=== PATIENT | female | born 1980 | race Caucasian/White ===

== ENCOUNTER 2018-08-31 05:10 | Inpatient (IN) ==
[2018-08-23 15:50] LABS: URINE SOURCE CLEAN CATCH
[2018-08-23 16:09] LABS: BILIRUBIN URINE NEGATIVE (NEGATIVE); BLOOD URINE SMALL (NEGATIVE); CLARITY CLOUDY (CLEAR); COLOR YELLOW; GLUCOSE URINE NEGATIVE (NEGATIVE); KETONE URINE TRACE mg/dL (NEGATIVE); LEUKOCYTES URINE NEGATIVE (NEGATIVE); NITRITE URINE NEGATIVE (NEGATIVE); PROTEIN URINE TRACE mg/dL (NEGATIVE); UROBILINOGEN URINE 0.2 EU/dL (0.2-1.0)
[2018-08-23 16:11] LABS: URINE BACTERIA 2+ /HFP; URINE EPITHELIAL CELLS <10 /HPF (<10); URINE RBC <10 /HPF (<10); URINE WBC <10 /HPF (<10)
[2018-08-23 16:12] LABS: URINE CAST NONE SEEN /LPF; URINE CRYSTAL NONE SEEN /HPF; URINE SMALL ROUND CELLS TRANSITIONAL PRESENT; URINE YEAST NONE SEEN /HPF
[2018-08-31] MEDS ORDERED: PEPCID ONE (06:17)
[2018-08-31] MEDS ORDERED: REGLAN ONE (06:17)
[2018-08-31] MEDS ORDERED: TRANSDERM-SCOP ONE (06:17)
[2018-08-31] MEDS ORDERED: LR 1,000 ML ONE ×2 (06:18→14:11)
[2018-08-31] MEDS ORDERED: LOVENOX ONE (06:18)
[2018-08-31] MEDS ORDERED: VALIUM ONE (06:18)
[2018-08-31] MEDS ORDERED: LUBRIFRESH PM OPH OINTMENT ONE (06:38)
[2018-08-31] MEDS ORDERED: VERSED ONE (06:40)
[2018-08-31] MEDS ORDERED: QUELICIN (DOSE) ONE (06:42)
[2018-08-31] MEDS ORDERED: XYLOCAINE-MPF 2% ONE (06:42)
[2018-08-31] MEDS ORDERED: DIPRIVAN 1% ONE (06:42)
[2018-08-31] MEDS ORDERED: EXPAREL 1.3% ONE (06:51)
[2018-08-31] MEDS ORDERED: BACITRACIN ONE (06:51)
[2018-08-31] MEDS ORDERED: NS 250 ML ONE (06:51)
[2018-08-31] MEDS ORDERED: KEFZOL 2 GM/D5W 2 GM/50 ML IVPB ONE (07:19)
[2018-08-31] MEDS ORDERED: FENTANYL ONE (07:31)
[2018-08-31 07:47] LABS: URINE SOURCE CATH
[2018-08-31 07:56] LABS: BILIRUBIN URINE NEGATIVE (NEGATIVE); BLOOD URINE NEGATIVE (NEGATIVE); COLOR YELLOW; GLUCOSE URINE NEGATIVE (NEGATIVE); KETONE URINE NEGATIVE (NEGATIVE); LEUKOCYTES URINE NEGATIVE (NEGATIVE); NITRITE URINE NEGATIVE (NEGATIVE); PROTEIN URINE NEGATIVE (NEGATIVE); SP GRAVITY URINE 1.007; TURBIDITY URINE CLEAR (CLEAR); UROBILINOGEN URINE NORMAL (NORMAL)
[2018-08-31 07:58] LABS: UR EPITHELIAL CELLS <10 /HPF (<10); URINE BACTERIA NEGATIVE /HPF; URINE RBC <10 /HPF (<10); URINE WBC <10 /HPF (<10)
[2018-08-31] MEDS ORDERED: ZOFRAN ONE (09:03)
[2018-08-31] MEDS ORDERED: ZEMURON ONE ×3 (09:03→11:39)
[2018-08-31] MEDS ORDERED: DECADRON ONE (09:03)
[2018-08-31] MEDS ORDERED: KEFZOL 1 GM/D5W 1 GM/50 ML IVPB ONE (11:06)
[2018-08-31] MEDS: PHENERGAN ONE ×2 (14:37→14:42)
[2018-08-31] MEDS ORDERED: LR 500 ML ONE (14:49)
[2018-08-31] MEDS ORDERED: DILAUDID PCA VIAL IV PRN (15:06)
[2018-08-31] MEDS ORDERED: NARCAN IV PRN (15:06)
--- NOTE | 2018-08-31 15:39 | OPERATIVE NOTE ---
PROCEDURE DATE: 08/31/2018 PREOPERATIVE DIAGNOSIS: Right breast cancer. POSTOPERATIVE DIAGNOSIS: Right breast cancer. PROCEDURE PERFORMED: 1. Right modified radical mastectomy. 2. Left total mastectomy. ESTIMATED BLOOD LOSS: 50 mL. SPECIMENS: 1. Left breast stitch ly medial. 2. Right breast with axillary contents. Short stitch ly medial, long stitch ly axillary contents. 3. Additional axillary contents. ANESTHESIA: General. INDICATIONS: This is a 38-year-old female status post neoadjuvant therapy for a local regionally advanced right breast carcinoma. She had a good clinical response and plans to undergo right- sided modified radical mastectomy and left total prophylactic with bilateral tissue nut blanker operator reconstruction by Dr. Reese. OPERATIVE FINDINGS: There was no evidence of gross residual disease noted. OPERATIVE NOTE: Risks, benefits, alternatives discussed with patient. She consented to the procedure. Was seen preoperatively and surgical site was confirmed and marked both by myself and Dr. Reese. She was taken to the operating room, placed supine in position with both arms out and her bilateral breasts were prepped with Betadine and draped in usual fashion. After time-out, we started with her left breast and made an elliptical incision that was previously made by Dr. Reese. We created a superior flap up to the level of the clavipectoral fascia laterally, out to the latissimus muscle medially to the sternum and inferiorly down to the inframammary fold in the superior aspect of the rectus. At this point, we removed the breast in its entirety, including the muscle fascia, protecting the muscle, passing it off. Hemostasis was noted. There were well perfused both superior and inferior flaps. We placed moist gauze within this and turned our attention to the right breast. A similar elliptical incision was made. We created a superior flap extending to the clavipectoral fascia inferiorly, to the inframammary fold in the rectus muscle laterally out to the latissimus. However, on this side given that she had biopsy confirmed adenopathy prior to her therapy, we identified the latissimus muscle and continued our dissection cephalad. There were some fibrotic nodes in the area of the axillary vein that made its identification somewhat difficult. We did identify the thoracodorsal bundle and protected this. Medially we also identified the long thoracic nerve and protected this. The intercostal brachialis was identified and divided as it coursed right through our specimen and some prominent nodes here, but we were able to identify the axillary vein. There were some feeding veins off of this that we divided with clips and some lymphatics in this area that we divided. We protected the thoracodorsal bundle throughout all this. At this point, we removed the entirety of the lymph node packet and passed it off. There did appear to be a small packet of nodes again more posterior and lateral to the thoracodorsal bundle that we excised. The nodes superior and medial to the axillary vein were not pathologically enlarged and as such we did not pursue a dissection in this area. Hemostasis was noted. The thoracodorsal and long thoracic nerve were intact. We irrigated the cavity and confirmed hemostasis. Counts were correct for my portion of the operation. We did turn our case over to Dr. Reese at which point he will continue with a tissue nut blanker operator reconstruction. For details please see his operative note. cc: Frank Jones MD [facility]
[2018-08-31] MEDS: LR 1,000 ML IV SCH (18:39)
[2018-08-31] MEDS: PERIDEX MT SCH (21:14)
[2018-08-31] MEDS: KEFZOL 1 GM/D5W 1 GM/50 ML IVPB IV SCH (21:14)
--- NOTE | 2018-08-31 22:29 | OPERATIVE NOTE ---
PROCEDURE DATE: 08/31/2018 PROCEDURE: Bilateral breast reconstruction, with bilateral submuscular tissue blasting contract miner. SURGEON: Dr. Reese. CODES: The ICD-10 diagnosis code for this case is Z85.3, personal history of breast cancer, and N64.89, acquired deformity of the breast. The CPT codes are 40806, insertion of tissue blasting contract miner, and 54633-39, insertion of tissue blasting contract miner on the other side. INDICATION FOR PROCEDURE: This patient is a 38-year-old white female who has a right breast cancer. She is being taken care of by Dr. Deacon Jones. She has finished adjuvant chemotherapy, and she is now ready for a modified radical mastectomy on the right side, and a prophylactic total mastectomy on the left side. She desires reconstruction. She was seen in the office for informed consent for the placement of bilateral tissue expanders on 08/23/2018. At that point, she understood that she would have bilateral air blasting contract miner tissue expanders placed in a submuscular position after Dr. Jones finished her mastectomies. She understands that this is the first stage of a planned 2-stage procedure, that the devices we are putting in are the stretching devices, they are not permanent. She understands there will be a period of time where she does not have optimal breast shape. She understands that exact bra cup size change cannot be guaranteed. She knows the risks include infection, blood loss, blood clots in legs, heart problems, lung problems, allergic reactions, or blood and serum collections in the operative sites that might require drainage. She understands that the tissue expanders have a lot of metal in them, and while she has them in, she cannot have an MRI scan. She knows that exact size and shape cannot be guaranteed. She knows her skin incisions will be across her chest on both sides, and that is where the scars will be. DESCRIPTION OF PROCEDURE: The patient was brought to the operating after she was marked in outpatient surgery in sitting position for the mastectomies. She went to the operating room, was prepped and draped. The ly were reviewed with Dr. Jones, and then he proceeded to do the mastectomies on both sides. When he was completed, the reconstruction began. Submuscular pockets were created under pectoralis major muscle, the pectoralis minor muscle, and the serratus anterior muscle, for 100% muscular closure. This was done on both sides, and dissected equal submuscular pockets. She measured well for the medium-size air expanders, which are the [id number] devices. Both pockets were irrigated with bacitracin solution. Exparel was placed in the subcutaneous tissue, and around the muscle perimeter, for postoperative pain management. A drain was placed deep in the pocket. Hemostasis was achieved with electrocautery. A silk stitch was placed at the 6 o'clock position to put into the blasting contract miner stitch tab. This was done on both sides. The expanders were opened. The remote control was checked. They were placed in the pockets. The silk was tied down to hold it vertically, and down low in the pocket. She had good size and shape. The muscles were closed with 3-0 Polysorb interrupted sutures on both sides. On the right side, a small patch of some fatty tissue from the inner surface of the upper mastectomy flap was sewn in to a small defect on the lateral external lower side. A drain was placed under both skin flaps on both sides, and on the right side another drain was placed in the axillary node dissection. All the drains were secured with silk drain stitches. The skin was tacked closed with silk sutures, and then closed with 3-0 Polysorb interrupted sutures in the fat, a running 3-0 Polysorb deep dermal suture, followed by running 4-0 Biosyn subcuticular stitch. The type of expanders that were used in this patient were AeroForm [id number] implants. They both had an extra 20 mL of CO2 released in the operating room. The serial number for the right one was [id number]. The serial number for the left implant was [id number]. She tolerated the procedure well, and was transported to the recovery room in good condition. cc: Patrick Reese MD
[2018-09-01] MEDS: LR 1,000 ML IV SCH (00:30)
[2018-09-01] MEDS: KEFZOL 1 GM/D5W 1 GM/50 ML IVPB IV SCH ×2 (04:26→11:27)
[2018-09-01] MEDS ORDERED: LR 1,000 ML IV SCH (07:45)
[2018-09-01] MEDS ORDERED: KLOR-CON PO SCH (09:00)
[2018-09-01] MEDS: PERIDEX MT SCH (09:13)
--- NOTE | 2018-09-01 09:15 | GENERAL SURGERY PROGRESS NOTE ---
DATE: 09/01/2018 SUBJECTIVE: She is doing well, pain controlled. No nausea. No fevers overnight. KATELYNN drains have been thin serosanguineous. OBJECTIVE: Vitals: Pulse 82, blood pressure 116/64, oxygen saturation 100%. General: She is alert. Integument: Wounds are flat. Dressings are in place. KATELYNN drain serosanguineous. LABORATORY: I reviewed her laboratories. Nothing new this morning. ASSESSMENT AND PLAN: A 38-year-old female status post bilateral mastectomies, right axillary dissection and tissue bee tender reconstruction with Dr. Reese. Plan is to let her go home today. I agree with this. I can see her in the next week to discuss her pathology. cc: MD Patrick Akbar MD MTDD
[2018-09-01] MEDS: NORCO-10 PO PRN ×2 (12:54→16:28)
[2018-09-01 15:40] VITALS: BP 107/62
[2018-09-01] MEDS ORDERED: LOVENOX SUBQ ONE (16:30)
[2018-09-01 18:19] LABS: BASO# 0.02 X1000 (0.0-0.2); BASO% 0.2 % (0.0-0.8); HEMATOCRIT 28.1 % (37.0-47.0); HEMOGLOBIN 8.8 g/dL (12.0-16.0); IMM GRAN# 0.03 X1000 (0.0-0.04); IMM GRAN% 0.3 % (0.0-0.5); LYMPH# 1.18 X1000 (1.2-3.4); MCH 34.2 PG (27-31); MCHC 31.3 g/dL (33-37); MCV 109.3 FL (81-99); MONO% 9.3 % (1.7-9.3); MPV 10.3 FL (7.4-10.4); NEUT% 79.2 % (42.2-75.2); PLT 141 X1000 (130-400); RBC 2.57 XMIL (4.2-5.4); RDW 17.5 % (11.5-14.5); WBC 10.73 X1000 (4.8-10.8)
[2018-09-01 19:14] LABS: LYMPHS 13 % (21-51); MONO 6 % (1-9); SEGS 81 % (42-75)
--- NOTE | 2018-09-02 09:32 | DISCHARGE SUMMARY ---
ADMISSION DATE: 08/31/2018 DISCHARGE DATE: 09/01/2018 ADMISSION DIAGNOSIS: Right breast cancer. DISCHARGE DIAGNOSIS: Right breast cancer. HOSPITAL COURSE: The patient was admitted to the hospital via outpatient surgery where preoperative ly were made for bilateral mastectomies to be performed by Dr. Worthy including a lymph node dissection on the right side. She went to the operating room, had an uncomplicated surgery, had reconstructions with bilateral tissue expanders. She has done well on the floor. She has good pain control. She is not nauseated. She is vomiting, and taking a solid diet. Drains are functioning well. The chest is flat. All of her postoperative medications were written for her, as an outpatient prior to admission. So she has all her medicines at home. Her family will be taught about how to take care of the drains. I will see her in the office on Thursday to change her dressings and check everything before the weekend. cc: MD Frank Caballero MD
== END 2018-09-01 18:20 | disposition home or self-care (01) | DRG 581 ==
LOC: SURHOLD 05:10 → 4N 07:21
PROVIDERS: ADMIT Surgery Plastic and Reconstructive Surgery; ATTEND Surgery Plastic and Reconstructive Surgery
CPT/HCPCS: 81001; 85025; 88307; 88309; 94761; 94799; A9270; C1789; C9290; J0330; J0690; J1100; J1170; J1650; J2250; J2405; J2550; J3010; J7050; J7120